=== PATIENT | male | born 1975 | race Caucasian/White ===

== ENCOUNTER → 2023-06-21 06:26 | Day surgery (SDC) | payer OTHER, SELFPAY | LOC: GI 06:26 | PROVIDERS: ATTENDING PHYSICIAN Surgery | DX: Z12.11 Encounter for screening for malignant neoplasm of colon (principal); K64.8 Other hemorrhoids; K57.30 Diverticulosis of large intestine without perforation or abscess without bleeding; K63.5 Polyp of colon | CPT/HCPCS: 45385; 45380; 88305 ==

== ENCOUNTER → 2023-07-05 11:03 | Outpatient (REF) | payer OTHER, SELFPAY | LOC: HWRAD 11:03 | PROVIDERS: ATTENDING PHYSICIAN Internal Medicine | DX: M53.3 Sacrococcygeal disorders, not elsewhere classified (principal) | CPT/HCPCS: 72220 ==